=== PATIENT | female | born 1955 | race Caucasian/White ===

== ENCOUNTER → 2024-11-17 12:46 | Outpatient (REF) | payer MEDICARE, SELFPAY | LOC: HWWDC 12:46 | PROVIDERS: ATTENDING PHYSICIAN Family Medicine | DX: Z12.31 Encounter for screening mammogram for malignant neoplasm of breast (principal); Z13.820 Encounter for screening for osteoporosis | CPT/HCPCS: 77063; 77067; 77080 ==

== ENCOUNTER 2025-02-10 06:23 | Day surgery (SDC) | payer MEDICARE, SELFPAY | END 2025-02-10 12:23 | disposition home or self-care (01) | LOC: GI 06:23 | PROVIDERS: ATTENDING PHYSICIAN Internal Medicine | DX: Z12.11 Encounter for screening for malignant neoplasm of colon (principal); D12.2 Benign neoplasm of ascending colon; D12.3 Benign neoplasm of transverse colon; K57.30 Diverticulosis of large intestine without perforation or abscess without bleeding; K64.9 Unspecified hemorrhoids; Z86.0101 Personal history of adenomatous and serrated colon polyps | CPT/HCPCS: 45385; 45380; 88305 ==